=== PATIENT | male | born 1990 | race Caucasian/White ===

== ENCOUNTER 2016-08-01 13:34 | Emergency (ER) | payer SELFPAY ==
[~2016-08-01] VITALS: Ht 170.2 cm; Wt 73.0 kg
[2016-08-01 13:40] VITALS: Ht 170.2 cm; Wt 73.0 kg
[2016-08-01] MEDS ORDERED: HYDROCODONE/APAP (5/325) TAB PO ONE (15:30)
--- NOTE | 2016-08-01 16:06 | RADRPT ---
PROCEDURE: XR Lumbar Spine. CLINICAL INDICATION: Low back pain. TECHNIQUE: Two views of the lumbar spine available for review COMPARISON: None available FINDINGS: There is normal mineralization, architecture and alignment. There is a mild dextroscoliosis. No fra ctures or osseous lesions are identified. No subluxation is identified. The disk spaces are unrema rkable. The facet joints are unremarkable. The soft tissues are unremarkable. IMPRESSION: Mild dextroscoliosis Otherwise unremarkable examination. RPTAT: HGDB .Kraig Ho MD, MD Date Time Electronically viewed and signed by .Kraig Ho MD, on 08/01/2016 16:06 .B/
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
[2016-08-01] MEDS ORDERED: ORPH100T PO (16:38)
[2016-08-01] MEDS ORDERED: IBUP-1542 PO (16:38)
[2016-08-01 16:53] VITALS: TEMP 98.4
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
== END 2016-08-01 16:53 | disposition home or self-care (01) ==
LOC: FTE 13:34
DX: M54.2 Cervicalgia (principal); R51 Headache; M54.5 Low back pain; Z04.1 Encounter for examination and observation following transport accident
CPT/HCPCS: 70450; 72100; 72125